=== PATIENT | female | born 1955 | race Caucasian/White ===

== ENCOUNTER 2018-11-03 21:48 | Emergency (ER) | payer OTHER ==
[~2018-11-03] VITALS: Ht 170.2 cm; Wt 77.1 kg
[2018-11-03] MEDS ORDERED: NOHOMEMEDICATIONS (21:58)
[2018-11-03 23:24] VITALS: BP 128/77
== END 2018-11-03 23:24 | disposition home or self-care (01) ==
LOC: ER 21:48
DX: T18.198A Other foreign object in esophagus causing other injury, initial encounter (principal); K21.9 Gastro-esophageal reflux disease without esophagitis

== ENCOUNTER 2019-05-31 03:20 | Emergency (ER) | payer OTHER ==
[~2019-05-31] VITALS: Ht 170.2 cm; Wt 74.8 kg
[~2019-05-31 03:20] MED LIST: NOHOMEMEDICATIONS
[2019-05-31 03:49] LABS: ABSOLUTE NEUTROPHILS 1.9 thou/uL (1.4-8.2); BASOPHILS 0.7 % (0.0-2.0); EOSINOPHILS 10.5 % (0.0-3.0); HEMATOCRIT 39.2 % (37.0-47.0); HEMOGLOBIN 13.4 gm/dL (12.0-15.0); LYMPHOCYTES 44.2 % (24.0-44.0); MCH 30.7 pg (26.0-34.0); MCHC 34.1 g/dL (28.0-37.0); MCV 89.8 fL (80.0-100.0); MONOCYTES 8.3 % (1.0-8.0); PLATELET COUNT 265 thou/uL (150-400); POLYS 36.3 % (36.0-66.0); RBC 4.36 mil/uL (4.20-5.00); RDW 12.9 % (10.5-14.5); WBC 5.2 thou/uL (4.0-11.0)
[2019-05-31 03:58] LABS: ANION GAP 10 mmol/L (7-16); BUN 9 mg/dL (7-18); CALCIUM 9.3 mg/dL (8.5-10.1); CHLORIDE 103 mmol/L (98-107); CO2 27 mmol/L (21-32); CREATININE 0.8 mg/dL (0.6-1.0); GLUCOSE 96 mg/dL (74-106); POTASSIUM 3.5 mmol/L (3.5-5.1); SODIUM 140 mmol/L (136-145)
[2019-05-31 04:06] LABS: ALBUMIN 3.5 g/dL (3.4-5.0); MAGNESIUM 2.3 mg/dL (1.8-2.4); SGOT 19 U/L (15-37); SGPT 29 U/L (30-65); TOTAL BILIRUBIN 0.5 mg/dL (<0.1-1.0); TOTAL PROTEIN 6.7 g/dL (6.4-8.2); TROPONIN-I <0.06 ng/mL (<0.06)
[2019-05-31 06:54] VITALS: BP 117/62
--- NOTE | 2019-05-31 09:47 | EKG ---
[place] [address] [facility] [place] [address] ELECTROCARDIOGRAM REPORT Name: JOANA ROBERSONUREEN Room #: [facility]P [facility] [id number] ������������������ Admission: 05/31/19 ������������������ Attend Phys: Discharge: 05/31/19 ������������������ Date of : 53 Report #: [id number] ����������������������������������������������������������������� [id number] THIS REPORT FOR: //name// [facility] ED Test Date: 2019-05-31 Test Time: 03:27:25 Pat Name: KAROLINA ROBERSON Department: Room: Gender: F [employer]: frank : 1955 Requested By: Wolfgang Rangel Order Number: [id number] MD: Erwin Ledesma Measurements Intervals [place] Rate: 78 P: 38 [place]: 205 QRS: 44 QRSD: 82 T: 43 QT: 366 QTc: 417 Interpretive Statements Sinus rhythm with first-degree AV block Otherwise normal tracing Compared to ECG 07/09/2005 16:58:45 No significant changes Electronically Signed On 05-31-2019 9:47:25 CDT by Erwin Ledesma [email or web address] ��������������������������������������������� <ELECTRONICALLY SIGNED> ���������������������������������������� By: Erwin Ledesma MD, [facility] ��������������������������������������������� 05/31/19 [id number] Erwin Ledesma MD, FACC /EPI
== END 2019-05-31 06:58 | disposition home or self-care (01) ==
LOC: ER 03:20
PROVIDERS: Emergency Medicine
DX: R07.89 Other chest pain (principal); R06.02 Shortness of breath; J45.909 Unspecified asthma, uncomplicated; Z82.49 Family history of ischemic heart disease and other diseases of the circulatory system